=== PATIENT | female | born 1940 | race Caucasian/White ===

== ENCOUNTER 2016-08-27 06:18 | Day surgery (SDC) | payer BC ==
[2016-08-25 12:50] LABS: Basophils # (auto) 0 uL; Basophils % (auto) 0.6 % (0.0-2.0); DEFINITIVE VIEW TRANSMISSION; Eosinophils # (auto) 0.1 uL; Eosinophils % (auto) 1.4 % (0.0-7.0); Hematocrit 42.9 % (36.0-46.0); Hemoglobin 13.5 g/dL (12.2-16.2); Lymphocytes # (auto) 1.5 uL; Lymphocytes % (auto) 19.2 % (10.0-50.0); Mean Corpuscular Hgb Conc. 31.4 g/dL (32.0-36.0); Mean Corpuscular Volume 86.1 fL (80.0-100.0); Mean Platelet Volume 8.9 fL (7.4-10.4); Monocytes # (auto) 0.3 uL; Monocytes % (auto) 3.8 % (0.0-12.0); Neutrophils # (auto) 5.7 uL; Platelet Count (auto) 375 10^3/uL (140-450); White Blood Cell 7.6 10^3/uL (4.4-10.8)
[2016-08-25 13:26] LABS: BUN/Creatinine Ratio 13.1; Bilirubin, Total 0.4 mg/dL (0.2-1.0); Calcium 9.4 mg/dL (8.5-10.1); Potassium 4.4 mmol/L (3.5-5.1); Total Protein 8.1 g/dL (6.4-8.2)
[2016-08-25 14:21] LABS: Urine Bilirubin Negative (Negative); Urine Blood Negative /uL (Negative); Urine Color Colorless (Yellow); Urine Glucose Normal (Normal); Urine Ketone Negative (Negative); Urine Nitrite Negative (Negative); Urine RBC <1 /hpf (0 - 4); Urine Squamous Epithelial Cell FEW /hpf (<5); Urine Urobilinogen Normal (Negative)
[2016-08-25 15:20] LABS: INR 1.08 (0.9-1.15); Partial Thromboplastin Time 26.4 sec (22.64-33.71); Prothrombin Time 11.1 sec (9.37-12.3)
[~2016-08-27] VITALS: Ht 167.6 cm; Wt 125.2 kg
[~2016-08-27 06:18] MED LIST: ASCO500T11 PO; ASPI81TA27 PO; CALCTAB25 PO; GLIP-115 PO; INSUINJ37 SUBCUT; LEVO125T6 PO; LISI40TA PO; MULTTAB61 PO; TRAM50TA2 PO
[2016-08-27] MEDS ORDERED: SUCCINYLCHOLINE CHLORIDE 20 MG/ML 10ML VIAL IV ONE (06:55)
[2016-08-27] MEDS ORDERED: IOHEXOL 300 MG/ML 100ML BOTTLE IJ ONE (06:57)
[2016-08-27] MEDS ORDERED: LIDOCAINE 2% JELLY 11ml (GLYDO) ONE (06:57)
[2016-08-27] MEDS ORDERED: PROPOFOL 10 MG/ML 20 ML IV ONE (07:14)
[2016-08-27] MEDS ORDERED: fentaNYL CITRATE 100 MCG/2 ML VL ONE (07:14)
[2016-08-27] MEDS ORDERED: ROCURONIUM 10MG/ML 10ML VIAL IV ONE (07:14)
[2016-08-27] MEDS ORDERED: MIDAZOLAM HCL 1MG/1ML-2 ML VIAL ONE (07:14)
[2016-08-27] MEDS ORDERED: ceFAZolin 1GM/50ML D5W 100 ML IV ONE (07:21)
[2016-08-27] MEDS ORDERED: HYDROmorphone HCL 2 MG/ML VL IV PRN (08:45)
[2016-08-27] MEDS ORDERED: ONDANSETRON HCL 4 MG/2 ML VIAL IV ONE (08:45)
[2016-08-27] MEDS ORDERED: ePHEDrine SULFATE 50 MG/ML AMP IV PRN (08:45)
[2016-08-27] MEDS ORDERED: hydrALAZINE HCL 20 MG/ML VL IV PRN (08:45)
[2016-08-27 10:00] VITALS: BP 134/63
== END 2016-08-27 10:00 | disposition home or self-care (01) ==
LOC: SUR 06:18
PROVIDERS: ATTEND Urology
DX: C67.9 Malignant neoplasm of bladder, unspecified (principal); E11.9 Type 2 diabetes mellitus without complications; I10 Essential (primary) hypertension; E03.9 Hypothyroidism, unspecified; Z90.710 Acquired absence of both cervix and uterus; E66.9 Obesity, unspecified; Z87.891 Personal history of nicotine dependence
CPT/HCPCS: 36415; 52240; 80053; 81001; 82962; 85025; 85610; 85730; 87086; 87088; 87186; 88307; J0330; J0360; J0690; J2250; J2405; J2704; J3010

== ENCOUNTER 2017-01-07 08:31 | Day surgery (SDC) | payer BC ==
[2016-12-18 12:09] LABS: Urine Bilirubin Negative (Negative); Urine Blood Negative /uL (Negative); Urine Color Yellow (Yellow); Urine Glucose Normal (Normal); Urine Ketone Negative (Negative); Urine Nitrite Negative (Negative); Urine RBC 1 /hpf (0 - 4); Urine Squamous Epithelial Cell FEW /hpf (<5); Urine Urobilinogen Normal (Negative); Urine pH 6.5 (5.0-8.0)
[2016-12-18 12:21] LABS: Basophils # (auto) 0.1 uL; Basophils % (auto) 1.1 % (0.0-2.0); Eosinophils # (auto) 0.1 uL; Eosinophils % (auto) 1.4 % (0.0-7.0); Hematocrit 41.2 % (36.0-46.0); Lymphocytes # (auto) 1.8 uL; Lymphocytes % (auto) 18.6 % (10.0-50.0); Mean Corpuscular Hgb Conc. 33.9 g/dL (32.0-36.0); Mean Corpuscular Volume 85.3 fL (80.0-100.0); Mean Platelet Volume 8.7 fL (7.4-10.4); Monocytes # (auto) 0.4 uL; Neutrophils # (auto) 7.1 uL; Neutrophils % (auto) 74.9 % (37.0-80.0); Platelet Count (auto) 337 10^3/uL (140-450); Red Cell Distribution Width 14.9 % (11.6-16.0); White Blood Cell 9.5 10^3/uL (4.4-10.8)
[2016-12-18 12:37] LABS: INR 1.03 (0.9-1.15); Partial Thromboplastin Time 22.9 sec (22.64-33.71); Prothrombin Time 11.2 sec (9.37-12.3)
[2016-12-18 12:41] LABS: BUN/Creatinine Ratio 10.9; Calcium 9.5 mg/dL (8.5-10.1); Potassium 4.6 mmol/L (3.5-5.1)
[2017-01-04 13:14] LABS: INR 1.04 (0.9-1.15); Partial Thromboplastin Time 25.9 sec (22.64-33.71); Prothrombin Time 11.3 sec (9.37-12.3)
[2017-01-04 13:24] LABS: Basophils # (auto) 0 uL; Basophils % (auto) 0.4 % (0.0-2.0); Eosinophils # (auto) 0.1 uL; Eosinophils % (auto) 1.2 % (0.0-7.0); Hematocrit 40.7 % (36.0-46.0); Hemoglobin 13.7 g/dL (12.2-16.2); Lymphocytes # (auto) 1.6 uL; Lymphocytes % (auto) 20.9 % (10.0-50.0); Mean Corpuscular Hemoglobin 28.8 pg (28.0-32.0); Mean Corpuscular Hgb Conc. 33.6 g/dL (32.0-36.0); Mean Corpuscular Volume 85.9 fL (80.0-100.0); Mean Platelet Volume 9.3 fL (7.4-10.4); Monocytes # (auto) 0.3 uL; Monocytes % (auto) 4.2 % (0.0-12.0); Neutrophils # (auto) 5.7 uL; Neutrophils % (auto) 73.3 % (37.0-80.0); Platelet Count (auto) 378 10^3/uL (140-450); Red Cell Distribution Width 14.1 % (11.6-16.0); White Blood Cell 7.7 10^3/uL (4.4-10.8)
[2017-01-04 13:58] LABS: Albumin 3.9 g/dL (3.4-5.0); BUN/Creatinine Ratio 12.1; Bilirubin, Total 0.4 mg/dL (0.2-1.0); Calcium 9.4 mg/dL (8.5-10.1); Potassium 4.5 mmol/L (3.5-5.1); Total Protein 7.7 g/dL (6.4-8.2)
[~2017-01-07] VITALS: Ht 165.1 cm; Wt 127.0 kg
[2017-01-07] MEDS ORDERED: ceFAZolin 1GM/50ML D5W 50 ML IV ONE (09:04)
[2017-01-07] MEDS ORDERED: MITOMYCIN 40 MG in STERILE WATER 60 ML IS ONE (09:15)
[2017-01-07] MEDS ORDERED: fentaNYL CITRATE 100 MCG/2 ML VL ONE (09:18)
[2017-01-07] MEDS ORDERED: MIDAZOLAM HCL 1MG/1ML-2 ML VIAL ONE (09:19)
[2017-01-07] MEDS ORDERED: MEPERIDINE HCL (50 MG/ML) 1 ML VIAL ONE (09:19)
[2017-01-07] MEDS ORDERED: SUCCINYLCHOLINE CHLORIDE 20 MG/ML 10ML VIAL IV ONE (09:49)
[2017-01-07] MEDS ORDERED: PROPOFOL 10 MG/ML 20 ML IV ONE (09:51)
[2017-01-07] MEDS ORDERED: DEXAMETHASONE SOD PHOS 10MG/1ML VIAL INJ ONE (09:51)
[2017-01-07] MEDS ORDERED: FUROSEMIDE 20 MG/2 ML VIAL IV ONE (09:57)
[2017-01-07] MEDS ORDERED: KETOROLAC TROMETH 30 MG/ML 1ML VIAL IV ONE (10:30)
[2017-01-07] MEDS ORDERED: hydrALAZINE HCL 20 MG/ML VL IV PRN (10:30)
[2017-01-07] MEDS ORDERED: ACCU-CHEK COMFORT CURVE STRIP VI ONE (10:30)
[2017-01-07] MEDS ORDERED: MORPHINE SULF INJ 2 MG/ML SYRINGE 1ML IV PRN (10:30)
[2017-01-07] MEDS ORDERED: ONDANSETRON HCL 4 MG/2 ML VIAL IV ONE (10:30)
[2017-01-07] MEDS ORDERED: ePHEDrine SULFATE 50 MG/ML AMP IV PRN (10:30)
[2017-01-07] MEDS ORDERED: LABETALOL HCL 5 MG/ML 4ML SYRINGE IV PRN (10:30)
[2017-01-07] MEDS ORDERED: MIDAZOLAM HCL 1MG/1ML-2 ML VIAL IV PRN (10:30)
[2017-01-07] MEDS ORDERED: HYDROmorphone HCL 2 MG/ML VL IV PRN (10:30)
[2017-01-07] MEDS ORDERED: KETOROLAC TROMETH 30 MG/ML 1ML VIAL ONE (10:31)
[2017-01-07] MEDS ORDERED: LIDOCAINE 2% JELLY 11ml (GLYDO) ONE (10:39)
[2017-01-07] MEDS ORDERED: LIDOCAINE 2% JELLY 11ml (GLYDO) UR ONE (10:58)
[2017-01-07 12:21] VITALS: BP 126/90
== END 2017-01-07 12:25 | disposition home or self-care (01) ==
LOC: SUR 08:31
PROVIDERS: ATTEND Urology
DX: C67.9 Malignant neoplasm of bladder, unspecified (principal); E66.9 Obesity, unspecified; E11.9 Type 2 diabetes mellitus without complications; F17.200 Nicotine dependence, unspecified, uncomplicated
CPT/HCPCS: 36415; 52204; 52240; 80048; 80053; 81001; 82962; 85025; 85610; 85730; 87086; 88307; J0330; J0690; J1100; J1885; J1940; J2175; J2250; J2704; J3010; J9280